=== PATIENT | female | born 1955 | race Two or more races ===

== ENCOUNTER 2024-04-12 06:14 | Day surgery (SDC) | payer MEDICARE, OTHER ==
[2024-04-12] MEDS ORDERED: KETOROLAC 0.5% OPHT DROP 3 ML BOTTLE ONE (06:31)
[2024-04-12] MEDS ORDERED: CIPROFLOXACIN 0.3% OPHT DROP 2.5 ML BOTTLE ONE (06:31)
[2024-04-12] MEDS ORDERED: CYCLOPENTOLATE 1% OPHT DROP 2 ML BOTTLE ONE (06:31)
[2024-04-12] MEDS ORDERED: TROPICAMIDE 1% OPHT DROP 3 ML BOTTLE ONE (06:32)
[2024-04-12] MEDS ORDERED: PHENYLEPHRINE 2.5% OPHT DROP 2 ML BOTTLE ONE (06:32)
[2024-04-12] MEDS ORDERED: BALANCED SALT IRRIG SOLN COMB1 500 ML, EPINEPHRINE-PF 1:1000 0.5 MG IO ONE (07:00)
[2024-04-12] MEDS ORDERED: TRYPAN BLUE 0.5 ML DISP.SYRIN ONE (07:05)
[2024-04-12] MEDS ORDERED: MOXIFLOXACIN HCL 3 ML OPHT DROPS ONE (07:05)
[2024-04-12] MEDS ORDERED: PHENYLEPHRINE 10% OPHT DROP 5 ML BOTTLE ONE (07:05)
[2024-04-12] MEDS ORDERED: LIDOCAINE-MPF 2% 5 ML VIAL ONE (07:05)
[2024-04-12] MEDS ORDERED: BALANCED SALT IRRIG SOLN COMB2 15 ML IRRIG.SOLN ONE (07:05)
[2024-04-12] MEDS ORDERED: TETRACAINE HCL 0.5% OPHT DROP 2 ML BOTTLE ONE (07:05)
[2024-04-12 07:06] LABS: BASOPHILS # (AUTO) 0.1 K/UL (0.0-0.2); BASOPHILS % (AUTO) 0.8 % (0.0-2.0); EOSINOPHILS % (AUTO) 0.1 % (0.0-7.0); HEMOGLOBIN 12.5 g/dL (10.9-14.3); LYMPHOCYTES # (AUTO) 2.6 K/uL (0.8-4.8); LYMPHOCYTES % (AUTO) 19.3 % (20.5-51.5); MEAN CORPUSCULAR HEMOGLOBIN 26.4 uug (24.7-32.8); MEAN CORPUSCULAR HGB CONC 32 g/dL (32.3-35.6); MEAN CORPUSCULAR VOLUME 82.4 fL (75.5-95.3); MONOCYTES # (AUTO) 0.9 K/uL (0.1-1.30); MONOCYTES % (AUTO) 6.8 % (0.0-11.0); NEUTROPHILS # (AUTO) 9.9 K/uL (1.8-8.9); PLATELET COUNT (AUTO) 340 K/uL (179-408); RED BLOOD CELL COUNT(AUTO) 4.74 MIL/uL (3.63-4.92); RED CELL DISTRIBUTION WIDTH 17.5 % (12.3-17.7); WHITE BLOOD COUNT (AUTO) 13.5 K/uL (3.8-11.8)
[2024-04-12] MEDS ORDERED: TIMOLOL MALEATE 0.5% OPHT DROP 5 ML BOTTLE ONE (07:06)
[2024-04-12] MEDS ORDERED: ATROPINE SULFATE 1% OPHT DROP 2 ML ONE (07:06)
[2024-04-12] MEDS ORDERED: BUPIVACAINE PF 0.5% 30 ML VIAL ONE (07:06)
[2024-04-12] MEDS ORDERED: ACETYLCHOLINE CHLORIDE 1% OPHT 1 EA KIT ONE (07:06)
[2024-04-12] MEDS ORDERED: NEO/POLYMYX B/DEXAME OPHT OINT 3.5 GM TUBE ONE (07:06)
[2024-04-12] MEDS ORDERED: HYALURONATE SODIUM 8.5 MG/0.85 ML ONE (07:07)
[2024-04-12] MEDS ORDERED: HYALURONATE SODIUM 12.8 MG/0.8 ML DISP.SYRIN ONE (07:07)
[2024-04-12] MEDS ORDERED: EPINEPHRINE-PF 1:1000 1 MG/ML AMPUL/VIAL ONE (07:10)
[2024-04-12 07:20] LABS: CALCIUM 8.8 mg/dL (8.5-10.1); CREATININE 0.6 mg/dL (0.6-1.3)
[2024-04-12 07:37] LABS: DIFFERENTIAL COMMENT 1
[2024-04-12 07:42] LABS: *BILIRUBIN,URIN NEGATIVE (NEGATIVE); *BLOOD, URINE NEGATIVE (NEGATIVE); *CLARITY,URINE SLIGHTLY CLOUDY (CLEAR); *COLOR,URINE YELLOW (YELLOW); *KETONES,URINE NEGATIVE (NEGATIVE); *PROTEIN,URINE NEGATIVE (NEGATIVE); *UROBILINOGEN,URINE 0.2 E.U./dl (NORMAL); LEUKOCYTE ESTERASE ,URINE 1+ (NEGATIVE); NITRITE, URINE NEGATIVE (NEGATIVE); UGLUCOSE NEGATIVE (NEGATIVE)
[2024-04-12] MEDS ORDERED: PROPOFOL 200 MG/20 ML BOTTLE ONE (08:10)
[2024-04-12] MEDS ORDERED: FENTANYL CITRATE 100 MCG/2 ML AMPUL ONE (08:13)
[2024-04-12] MEDS ORDERED: BALANCED SALT IRRIG SOLN COMB1 500 ML ONE (08:49)
[2024-04-12 10:15] VITALS: TEMP 97.6
[2024-04-12 21:59] LABS: BAND % (MANUAL) 7 % (0-10); LYMPHOCYTES % (MANUAL) 18 % (20-40); MONOCYTES % (MANUAL) 10 % (2-10); NEUTROPHILS % (MANUAL) 65 % (42-75)
[2024-04-12 22:00] LABS: PLATELET ESTIMATE ADEQUATE
== END 2024-04-12 10:35 | disposition home or self-care (01) ==
LOC: DS 06:14
PROVIDERS: ATTEND Ophthalmology
DX: H25.89 Other age-related cataract (principal); Z86.2 Personal history of diseases of the blood and blood-forming organs and certain disorders involving the immune mechanism; Z79.899 Other long term (current) drug therapy; Z90.710 Acquired absence of both cervix and uterus; Z98.890 Other specified postprocedural states
CPT/HCPCS: 66984; 71045; 80048; 81001; 85025; 85730; 36415; 85007; Q9968; J7321 ×2; J3490 ×3; J0171 ×2; J2765; J3010; J7120; V2632; 70030-TC; A4663

== ENCOUNTER 2024-07-12 06:01 | Day surgery (SDC) | payer MEDICARE, OTHER ==
[2024-07-12] MEDS ORDERED: CYCLOPENTOLATE 1% OPHT DROP 2 ML BOTTLE ONE (06:15)
[2024-07-12] MEDS ORDERED: KETOROLAC 0.5% OPHT DROP 3 ML BOTTLE ONE (06:15)
[2024-07-12] MEDS ORDERED: CIPROFLOXACIN 0.3% OPHT DROP 2.5 ML BOTTLE ONE (06:15)
[2024-07-12] MEDS ORDERED: PHENYLEPHRINE 2.5% OPHT DROP 2 ML BOTTLE ONE (06:16)
[2024-07-12] MEDS ORDERED: TROPICAMIDE 1% OPHT DROP 3 ML BOTTLE ONE (06:16)
[2024-07-12] MEDS ORDERED: BALANCED SALT IRRIG SOLN COMB2 15 ML IRRIG.SOLN ONE (06:49)
[2024-07-12] MEDS ORDERED: TRYPAN BLUE 0.5 ML DISP.SYRIN ONE (06:49)
[2024-07-12] MEDS ORDERED: PHENYLEPHRINE 10% OPHT DROP 5 ML BOTTLE ONE (06:49)
[2024-07-12] MEDS ORDERED: TIMOLOL MALEATE 0.5% OPHT DROP 5 ML BOTTLE ONE (06:50)
[2024-07-12] MEDS ORDERED: ATROPINE SULFATE 1% OPHT DROP 2 ML ONE (06:50)
[2024-07-12] MEDS ORDERED: BUPIVACAINE PF 0.5% 30 ML VIAL ONE (06:50)
[2024-07-12] MEDS ORDERED: MOXIFLOXACIN HCL 3 ML OPHT DROPS ONE (06:50)
[2024-07-12] MEDS ORDERED: NEO/POLYMYX B/DEXAME OPHT OINT 3.5 GM TUBE ONE (06:50)
[2024-07-12] MEDS ORDERED: TETRACAINE HCL 0.5% OPHT DROP 2 ML BOTTLE ONE (06:50)
[2024-07-12] MEDS ORDERED: LIDOCAINE-MPF 2% 5 ML VIAL ONE (06:50)
[2024-07-12] MEDS ORDERED: HYALURONATE SODIUM 8.5 MG/0.85 ML ONE (06:51)
[2024-07-12] MEDS ORDERED: ACETYLCHOLINE CHLORIDE 1% OPHT 1 EA KIT ONE (06:51)
[2024-07-12] MEDS ORDERED: HYALURONATE SODIUM 12.8 MG/0.8 ML DISP.SYRIN ONE (06:51)
[2024-07-12] MEDS ORDERED: EPINEPHRINE-PF 1:1000 1 MG/ML AMPUL/VIAL ONE (06:52)
[2024-07-12] MEDS ORDERED: BALANCED SALT IRRIG SOLN COMB1 500 ML, EPINEPHRINE-PF 1:1000 0.5 MG IO ONE (07:00)
[2024-07-12] MEDS ORDERED: FENTANYL CITRATE 100 MCG/2 ML AMPUL ONE (07:38)
[2024-07-12] MEDS ORDERED: BALANCED SALT IRRIG SOLN COMB1 500 ML ONE (08:19)
[2024-07-12 09:39] VITALS: TEMP 97.6
== END 2024-07-12 10:29 | disposition home or self-care (01) ==
LOC: DS 06:01
PROVIDERS: ATTEND Ophthalmology
DX: H25.89 Other age-related cataract (principal); M19.90 Unspecified osteoarthritis, unspecified site; I10 Essential (primary) hypertension; E66.9 Obesity, unspecified; Z87.440 Personal history of urinary (tract) infections; Z90.710 Acquired absence of both cervix and uterus; Z98.890 Other specified postprocedural states; Z79.899 Other long term (current) drug therapy; Z86.2 Personal history of diseases of the blood and blood-forming organs and certain disorders involving the immune mechanism
CPT/HCPCS: A4663; J0171; J3010; J3490; J7120; J7321; Q9968; V2632